=== PATIENT | female | born 1975 | race Caucasian/White ===

== ENCOUNTER 2021-07-30 21:48 | Emergency (ER) | payer OTHER ==
[~2021-07-30 21:48] MED LIST: ALL DAY ALLERGY10 M2 PO; MELOXICAM15 MG PO; PRINIVIL10 MG PO
[2021-07-31 03:44] LABS: BASOPHIL 0.2 % (0-2); EOSINOPHIL 0.8 % (0-5); HCT 42.4 % (37.0-47.0); HGB 14.5 g/dl (12.5-16.0); LYMPHOCYTE 8.1 % (15-48); MCH 30.1 pg (25.0-31.0); MCHC 34.2 g/dL (32.0-36.0); MONOCYTE 1.8 % (0-12); MPV 9.6 fL (6.0-9.5); NEUTROPHIL 88.6 % (41-80); NRBC 0; PLT 262 K/uL (150-400); RBC 4.82 M/uL (4.20-5.40); RDW 11.9 % (11.5-14.0); WBC 13.2 K/uL (4.0-10.5)
[2021-07-31 04:10] LABS: ALBUMIN 4.1 g/dL (3.4-5.0); BILIRUBIN - TOTAL 0.8 mg/dL (0.2-1.0); BUN/CREAT RATIO (CALC) 33.9 RATIO; CREATININE 0.56 mg/dL (0.51-0.95); GLOBULIN (CALCULATION) 4.5 g/dL; POTASSIUM 3.6 mmol/L (3.5-5.1); TOTAL PROTEIN 8.6 g/dL (6.4-8.2)
[2021-07-31 04:15] LABS: CORONAVIRUS 2019 SARS-COV-2 NEGATIVE (NEGATIVE); INFLUENZA A NAA NEGATIVE (NEGATIVE)
[2021-07-31] MEDS ORDERED: BENTYL10 MG PO (05:05)
[2021-07-31] MEDS ORDERED: PHENERGAN25 M1 PO (05:05)
[2021-07-31 06:13] LABS: BILIRUBIN 1+ mg/dL (NEGATIVE); BLOOD NEGATIVE Ery/uL (NEGATIVE); CLARITY CLEAR (CLEAR); COLOR YELLOW (YELLOW); GLUCOSE (U) NORMAL (NORMAL); LEUKOCYTES NEGATIVE Leu/uL (NEGATIVE); NITRITE NEGATIVE (NEGATIVE); PROTEIN 1+ mg/dL (NEGATIVE); SPECIFIC GRAVITY >=1.030 (1.001-1.030); UROBILINOGEN 0.2 mg/dL (0.2-1.0)
[2021-07-31 06:30] LABS: MUCOUS LARGE
== END 2021-07-31 06:00 | disposition home or self-care (01) ==
LOC: FER 21:48
PROVIDERS: Emergency Medicine Emergency Medical Services
DX: R10.84 Generalized abdominal pain (principal); R11.2 Nausea with vomiting, unspecified; R19.7 Diarrhea, unspecified; E11.9 Type 2 diabetes mellitus without complications; I10 Essential (primary) hypertension; Z79.84 Long term (current) use of oral hypoglycemic drugs; Z20.822 Contact with and (suspected) exposure to COVID-19
CPT/HCPCS: 36415; 74022; 80053; 81001; 83605; 83690; 83735; 84145; 85025; J1885; J2550; J7120; U0002